=== PATIENT | female | born 1970 | race Caucasian/White ===

== ENCOUNTER 2022-05-19 06:57 | Day surgery (SDC) | payer OTHER ==
[2022-05-14 14:58] LABS: Hemoglobin 14.1 g/dL (12.0-15.5); Mean Corpuscular HGB CONC 34.7 g/dL (32.0-36.0); Mean Corpuscular Hemoglobin 29.5 pg (27.0-33.0); Mean Corpuscular Volume 84.9 fl (81.6-98.3); Mean Platelet Volume 10.5 fl (7.4-10.4); Platelet Count 353 10x3/uL (150-450); RBC Distribution Width 12.7 % (11.5-14.5); Red Blood Cell (RBC) Count 4.78 10x6/uL (3.90-5.03); White Blood Cell (WBC) Count 8.2 10x3/uL (3.5-10.5)
[2022-05-14 15:20] LABS: BHCG - Serum Negative (NEGATIVE); Pregs Control Background? CLEAR/WHITE (CLR/WHITE); Pregs Control Bar Appear? YES (CONTROL BAR)
[2022-05-17 16:44] VITALS: BMI 37.1
[2022-05-19] MEDS ORDERED: Lidocaine 1% MPF 2 ML VIAL ONE (07:30)
[2022-05-19] MEDS ORDERED: CeleCOXIB 100 MG CAP ONE (07:30)
[2022-05-19] MEDS ORDERED: HYDROmorphone 0.5 MG/0.5 ML SYRINGE ONE (09:22)
[2022-05-19] MEDS ORDERED: PROPOFOL 20 ML ONE ×2 (09:23→10:03)
[2022-05-19] MEDS ORDERED: Midazolam HCl 2 mg/2 ml Vial ONE (09:24)
[2022-05-19] MEDS ORDERED: Ondansetron PF 4 MG/2 ML Vial ONE (09:24)
[2022-05-19] MEDS ORDERED: Ketorolac Tromethamine 30 MG/ML VIAL ONE (09:24)
[2022-05-19] MEDS ORDERED: Fentanyl 100 MCG/2 ML VIAL ONE (09:24)
[2022-05-19] MEDS ORDERED: Lidocaine 2% PF 5 ML VIAL ONE (09:24)
[2022-05-19] MEDS ORDERED: Dexamethasone 20 MG/5 ML VIAL ONE (09:24)
[2022-05-19] MEDS ORDERED: CEFAZOLIN 2 GM VIAL ONE (09:36)
[2022-05-19] MEDS ORDERED: Lidocaine 1% PF 5 ML VIAL ONE (09:42)
[2022-05-19] MEDS ORDERED: PHENYLEPHRINE-NS 100 MCG/ML 10 ML SYRINGE ONE (10:04)
[2022-05-19] MEDS ORDERED: ePHEDrine Sulfate 50 MG/10 ML VIAL ONE (10:14)
[2022-05-19] MEDS ORDERED: Metoclopramide HCl 10 MG/2 ML VIAL ONE (10:23)
== END 2022-05-19 13:50 | disposition home or self-care (01) ==
LOC: CSHSDC 06:57
PROVIDERS: ATTEND Student in an Organized Health Care Education/Training Program
PROC: 0UB98ZZ Excision of Uterus, Via Natural or Artificial Opening Endoscopic (ICD-10-PCS; principal; 2022-05-19)
DX: D25.0 Submucous leiomyoma of uterus (principal); N92.0 Excessive and frequent menstruation with regular cycle; E03.9 Hypothyroidism, unspecified; Z79.890 Hormone replacement therapy; Z79.899 Other long term (current) drug therapy; Z20.822 Contact with and (suspected) exposure to COVID-19
CPT/HCPCS: 84703; 85027; 86850; 86900; 86901; 88305; J0690; J1100; J1170; J1885; J2001; J2250; J2405; J2704; J2765; J3010; U0003; U0005